=== PATIENT | male | born 1950 | race Caucasian/White ===

== ENCOUNTER 2023-04-13 11:13 | Outpatient (RCR) | payer MEDICARE, SELFPAY ==
[2023-03-16 09:18] LABS: Glucose - Point of Care 155 mg/dl (70-99)
[2023-03-16 10:19] LABS: Glucose - Point of Care 128 mg/dl (70-99)
[2023-03-18 09:15] LABS: Glucose - Point of Care 149 mg/dl (70-99)
[2023-03-18 10:22] LABS: Glucose - Point of Care 122 mg/dl (70-99)
[2023-03-21 09:18] LABS: Glucose - Point of Care 194 mg/dl (70-99)
[2023-03-21 10:17] LABS: Glucose - Point of Care 125 mg/dl (70-99)
[2023-03-23 09:16] LABS: Glucose - Point of Care 291 mg/dl (70-99)
[2023-03-23 10:19] LABS: Glucose - Point of Care 265 mg/dl (70-99)
[2023-03-25 09:26] LABS: Glucose - Point of Care 230 mg/dl (70-99)
[2023-03-25 10:34] LABS: Glucose - Point of Care 134 mg/dl (70-99)
[2023-03-28 09:27] LABS: Glucose - Point of Care 249 mg/dl (70-99)
[2023-03-28 10:30] LABS: Glucose - Point of Care 109 mg/dl (70-99)
== END 2023-04-13 23:59 | disposition home or self-care (01) ==
LOC: CRHB 11:13
PROVIDERS: ATTENDING PHYSICIAN Internal Medicine Cardiovascular Disease; FAMILY PHYSICIAN Family Medicine
DX: I25.10 Atherosclerotic heart disease of native coronary artery without angina pectoris (principal); Z95.1 Presence of aortocoronary bypass graft
CPT/HCPCS: 36415; 80061; 82962; G0422; G0423

== ENCOUNTER 2023-04-20 10:37 | Outpatient (RCR) | payer MEDICARE, SELFPAY | END 2023-04-20 23:59 | disposition home or self-care (01) | LOC: CRHB 10:37 | PROVIDERS: ATTENDING PHYSICIAN Internal Medicine Cardiovascular Disease; FAMILY PHYSICIAN Family Medicine | DX: I25.10 Atherosclerotic heart disease of native coronary artery without angina pectoris (principal); Z95.1 Presence of aortocoronary bypass graft | CPT/HCPCS: G0422 ==

== ENCOUNTER → 2023-09-08 06:19 | Day surgery (SDC) | payer MEDICARE, SELFPAY ==
[2023-09-08 07:15] LABS: Glucose - Point of Care 187 mg/dl (70-99)
== END ==
LOC: GI 06:19
PROVIDERS: ATTENDING PHYSICIAN Internal Medicine Gastroenterology; FAMILY PHYSICIAN Family Medicine
DX: Z12.11 Encounter for screening for malignant neoplasm of colon (principal); Z86.010 Personal history of colon polyps; K57.30 Diverticulosis of large intestine without perforation or abscess without bleeding; K64.8 Other hemorrhoids; K62.89 Other specified diseases of anus and rectum
CPT/HCPCS: G0105; 82962

== ENCOUNTER → 2024-03-19 12:38 | Outpatient (REF) | payer MEDICARE, SELFPAY | LOC: RCS 12:38 | PROVIDERS: ATTENDING PHYSICIAN Internal Medicine Cardiovascular Disease; FAMILY PHYSICIAN Family Medicine | DX: I25.10 Atherosclerotic heart disease of native coronary artery without angina pectoris (principal) | CPT/HCPCS: 93306 ==